=== PATIENT | female | born 1935 | race Caucasian/White ===

== ENCOUNTER 2017-03-15 15:01 | Emergency (ER) | payer SELFPAY | END 2017-03-15 18:53 | disposition home or self-care (01) | LOC: D.ER 15:01 | DX: S39.012A Strain of muscle, fascia and tendon of lower back, initial encounter (principal); W01.0XXA Fall on same level from slipping, tripping and stumbling without subsequent striking against object, initial encounter; Y93.89 Activity, other specified; Y92.019 Unspecified place in single-family (private) house as the place of occurrence of the external cause ==

== ENCOUNTER 2017-03-22 07:23 | Inpatient (IN) | payer MEDICARE, OTHER ==
[2017-03-22] VITALS (7 sets, daily range): BP systolic 95–195; BP diastolic 42–85; BMI 23.7
[~2017-03-22] VITALS: Ht 167.6 cm; Wt 66.7 kg
--- NOTE | ~2017-03-22 | CN ---
PATIENT NAME:CLEMENT BYRNE MEDICAL RECORD: [id number] : 37 LOCATION:[facility].CV07 ADMIT DATE: 03/22/17 ACCOUNT: [id number] CONSULTING PHYSICIAN: ERMY MCALLISTER MD REFERRING PHYSICIAN: PILLO VARGHESE MD DATE OF CONSULTATION: 03/26/2017 REQUESTING PHYSICIAN: Tatiana Sharma MD. REASON FOR CONSULTATION: Acute exacerbation of COPD and shortness of breath. HISTORY OF PRESENT ILLNESS: Ms. Byrne is an 81-year-old female, now she is confused. She was admitted on the 22 of March with peripheral vascular disease. She underwent right above-knee amputation by Dr. Fernandes. Now, she has increasing shortness of breath. She is coughing and she also is confused with mental status changes. REVIEW OF SYSTEMS: The detail is not obtainable. PAST MEDICAL HISTORY: 1. COPD. 2. Hypertension. 3. Hypercholesterolemia. 4. Gastroesophageal reflux disease. 5. Anxiety. PAST SURGICAL HISTORY: She has hysterectomy, now she is status post right above-knee amputation. ALLERGIES: SHE IS ALLERGIC TO PENICILLIN. PRESENT MEDICATIONS: ev3, Inctech was reviewed. PERSONAL AND SOCIAL HISTORY: The patient is a current everyday smoker. She is a nondrinker. FAMILY HISTORY: Noncontributory. PHYSICAL EXAMINATION: GENERAL: Now, the patient is lying comfortably. She is not in acute distress. VITAL SIGNS: The blood pressure is 150/50, pulse is 94, respirations 20, temperature is 98.7, SpO2 is 94% on 3 L nasal cannula. HEENT: Conjunctiva is pale. Sclerae nonicteric. NECK: Supple. No JVD. CHEST: Prolonged expiration with wheezing. There are crackles at the right base. HEART: Rate and rhythm is regular, normal sound, no murmur. ABDOMEN: Soft. Bowel sounds present. No hepatosplenomegaly. RECTAL: Deferred. EXTREMITIES: No cyanosis, no clubbing. There is no pedal edema. There is a right above-knee amputation. LABORATORY DATA: CBC: WBC is 15.1, hemoglobin 8.1, hematocrit 25, the platelet count is 397. Chemistry: Sodium 144, potassium is 3, BUN is 47, creatinine 1.7, glucose 119. CONSULT REPORT [id number] CLEMENT BYRNE IMAGING: Chest radiograph, there is atelectasis and infiltrate, right lower lobe. IMPRESSION: 1. Acute exacerbation of chronic obstructive pulmonary disease, midyl-me-xxkvcio hypoxic respiratory failure. 2. Pneumonia, right lower lobe, most likely hospital-acquired pneumonia. The patient is status post general anesthesia and possible aspiration. 3. Leukocytosis. 4. Anemia. 5. Acute renal failure. 6. Gastroesophageal reflux, status post right above-knee amputation. 7. Peripheral vascular disease. RECOMMENDATION: 1. Get a speech evaluation. Start her on vancomycin, cefepime and Levaquin to cover for MRSA as well as Gram-negative michael and hospital-acquired pneumonia. 2. Start methylprednisolone IV, albuterol/ipratropium nebulizer. 3. Brovana and budesonide nebulizer. 4. Mucinex. Follow up labs and chest radiograph. Dr. Sharma, thank you for involving me in the care of Ms. Byrne. The critical care time is 45 minutes. TRANSINT:[id number] Voice Confirmation ID: [id number] DOCUMENT ID: [id number] REMY MCALLISTER MD CC: TATIANA SHARMA MD [id number] DICTATION DATE: 03/26/17 1050 TATTOO IDENTIFIER: 03/26/17 1223 ADM IN [facility] [address] [place] [address]
--- NOTE | ~2017-03-22 | HEMODYNAMI ---
PATIENT:CLEMENT MCKEON MEDICAL RECORD: [id number] : 37 LOCATION:[facility] ADMISSION DATE: 03/22/17 Generatedon:03/22/201712:51 Patient name: CLEMENT MCKEON Patient #: [id number] SSN: : 1935 Date of study: 03/22/2017 Page: Of Hemodynamic Procedure Report Patient Data Patient Demographics Procedure consent was obtained First Name: CLEMENT Gender: Female Last Name: LINDA : 1935 [facility] Initial: J Age: 81 year(s) Patient #: [id number] Race: Unknown Additional ID: [id number] Contact details [address]: [address] [place] [address] State: [place] City: [place] Zip code: [address] Past Medical History Allergies Allergen Reaction Date Comments Reported Penicillins 03/22/2017 Admission Admission Data Admission Date: 03/22/2017 Admission Time: 7:23 Weight (lbs.): 147 Weight (kg.): 66.68 Procedure Procedure Types Cath Procedure Peripheral Cath Diagnostic Procedure Cath Peripheral Abd/Extremity Extremities Bilat Lower Extremity Procedure Description Procedure Date Procedure Date: 03/22/2017 Procedure Start Time: 11:06 Procedure Staff Name Function Pratik Bailey MD Performing Physician Harjeet Savage RT Scrub Cecilia Sharma RN Nurse Donna Pang RN Nurse Kelly Mccracken RT Test Technician Kelly Mccracken RT Monitor Procedure Data Cath Procedure Fluoroscopy Diagnostic fluoroscopy Total fluoroscopy Time: time: 21.3 min 21.3 min Diagnostic fluoroscopy Total fluoroscopy dose: 881 dose: 881 mGy mGy Contrast Material Contrast Material Type Amount (ml) Isovue 300 155 Diagnostic catheters Device Type Used For End Catheter Placement Merit ULTRA BOLUS FLUSH 5Fr 90CM catheter Procedure Medications Medication Administration Route Dosage Fentanyl I.V. 50 mcg Oxygen NC 3 l/min Fentanyl I.V. 50 mcg Heparin Flush Bag added to field 3 bags (1000units/500ml NS) Lidocaine 1% added to field 20 Versed I.V. 0.5 mg Hydralizine I.V. 10 mg Versed I.V. 0.5 mg Hydralizine I.V. 10 mg Fentanyl I.V. 50 mcg Versed I.V. 0.5 mg Fentanyl I.V. 25 mcg Versed I.V. 0.5 mg Fentanyl I.V. 25 mcg Heparin Bolus I.V. 5000 units Fentanyl I.V. 50 mcg Fentanyl I.V. 50 mcg Hemodynamics Rest Heart Rate: 81 (bpm) Snapshots Pre Cath Intra NCS Post Cath Vital Signs Time Heart Resp SPO2 NIBP (mmHg) Rhythm Pain Status Sedation Rate (ipm) (%) Level (bpm) 10:44:14 88 15 97 Out of NSR 4 (11) , 10(A) range Distressing 10:48:42 88 17 98 186/80(138) NSR 4 (11) , 10(A) Distressing 10:53:08 86 16 98 186/77(141) NSR 4 (11) , 10(A) Distressing 10:57:36 87 15 96 179/75(133) NSR 4 (11) , 10(A) Distressing 11:01:59 88 14 97 175/76(130) NSR 4 (11) , 10(A) Distressing 11:06:58 89 23 96 Measuring NSR 0 (11) , No 9(A) pain 11:07:14 90 20 98 182/77(135) NSR 0 (11) , No 9(A) pain 11:11:36 87 12 97 181/81(135) NSR 0 (11) , No 10(A) pain 11:16:35 88 22 96 Measuring NSR 0 (11) , No 9(A) pain 11:17:02 90 17 98 188/76(137) NSR 0 (11) , No 9(A) pain 11:21:32 86 14 98 186/72(117) NSR 0 (11) , No 10(A) pain 11:25:56 89 16 97 173/73(124) NSR 0 (11) , No 9(A) pain 11:30:14 88 16 98 152/61(112) NSR 0 (11) , No 9(A) pain 11:34:33 90 14 96 155/64(116) NSR 0 (11) , No 10(A) pain 11:39:42 89 13 97 145/60(103) NSR 0 (11) , No 10(A) pain 11:44:06 91 13 96 138/60(96) NSR 0 (11) , No 9(A) pain 11:48:22 95 19 97 135/60(90) NSR 0 (11) , No 9(A) pain 11:52:42 95 10 93 148/65(103) NSR 0 (11) , No 9(A) pain 11:57:00 94 19 93 149/64(98) NSR 0 (11) , No 9(A) pain 12:01:25 97 15 93 162/64(105) NSR 0 (11) , No 9(A) pain 12:05:39 97 22 93 143/62(102) NSR 0 (11) , No 10(A) pain 12:10:01 98 13 91 149/62(103) NSR 0 (11) , No 9(A) pain 12:15:18 96 17 93 142/63(99) NSR 0 (11) , No 9(A) pain 12:19:36 98 20 94 151/60(91) NSR 0 (11) , No 9(A) pain 12:23:56 100 13 93 148/58(95) NSR 0 (11) , No 9(A) pain 12:29:12 99 14 90 151/59(102) NSR 0 (11) , No 9(A) pain 12:33:30 98 18 94 144/66(109) NSR 0 (11) , No 9(A) pain 12:39:53 103 21 99 Time NSR 0 (11) , No 9(A) Exceeded pain 12:44:42 100 19 94 120/58(95) NSR 0 (11) , No 9(A) pain 12:48:47 100 22 93 127/74(93) NSR 0 (11) , No 9(A) pain Medications Time Medication Route Dose Verified Delivered Reason Notes Effectiveness by by 10:54:02 Fentanyl I.V. 50 Cecilia Cecilia for right leg mikey Sharma RN pain 10:54:16 Oxygen NC 3 Cecilia Cecilia Per protocol l/min King BELIA Sharma RN 11:01:15 Fentanyl I.V. 50 Cecilia Cecilia for right leg mcg Zachary RN Zachary RN pain 11:01:38 Heparin Flush added 3 Cecilia Cecilia used for Bag to bags King BELIA Sharma business data analyst (1000units/500ml field NS) 11:01:52 Lidocaine 1% added 20ml Cecilia Cecilia for local to vial King BELIA Sharma RN anesthetic field 11:14:51 Versed I.V. 0.5 Cecilia Cecilia for sedation mg King BELIA Sharma RN 11:17:27 Hydralizine I.V. 10 mg Cecilia Cecilia for King BELIA Sharma RN hypertension 11:23:53 Versed I.V. 0.5 Cecilia Cecilia for sedation mg King BELIA Sharma RN 11:26:38 Hydralizine I.V. 10 mg Cecilia Cecilia for King BELIA Sharma RN hypertension 11:39:11 Fentanyl I.V. 50 Cecilia Cecilia for sedation mcg King BELIA Sharma RN 11:41:54 Versed I.V. 0.5 Cecilia Cecilia for sedation mg King BELIA Sharma RN 11:42:01 Fentanyl I.V. 25 Cecilia Ceiclia for sedation mcg King BELIA Sharma RN 11:58:38 Versed I.V. 0.5 Cecilia Cecilia for sedation mg King BELIA Sharma RN 11:58:47 Fentanyl I.V. 25 Cecilia Cecilia for sedation mcg King BELIA Sharma RN 12:00:44 Heparin Bolus I.V. 5000 Cecilia Cecilia for units King BELIA Sharma RN anticoagulation 12:06:52 Fentanyl I.V. 50 Cecilia Cecilia for sedation mcg King BELIA Sharma RN 12:22:14 Fentanyl I.V. 50 Cecilia Cecilia for sedation mcg King BELIA Sharma button breaker Log Time Note 10:36:44 Patient Weight : 147 kg 10:37:43 Time tracking: Regular hours 10:38:00 Plan of Care:Hemodynamics will remain stable., Cardiac rhythm will remain stable., Comfort level will be maintained., Respiratory function will remain adequate., Patient/ family verbilizes understanding of procedure., Procedure tolerated without complication., Recovers from procedure without complications.. 10:38:08 Patient received from Outpatients to IR Alert and oriented. Tansferred to table in Supine position. 10:38:25 Signed procedure consent form obtained from patient. 10:38:35 H&P Date Dictated: 03/22/2017 Within 30 days and on chart.. 10:38:38 Pre-procedure instructions explained to patient. 10:38:39 Pre-op teaching completed and patient verbalized understanding. 10:38:44 Family unavailable. 10:38:51 Patient NPO since Midnight. 10:39:07 Patient allergic to Penicillins 10:39:26 Is the patient allergic to Iodine/contrast media? No. 10:39:29 Is patient on blood thinner?No 10:40:02 Patient diabetic? No. 10:40:08 Snore? Yes 10:40:11 Sleep apnea? No 10:40:13 Deviated septum? No 10:40:15 Opens mouth fully? Yes 10:40:17 Sticks out tongue? Yes 10:40:25 Airway obstruction? No ? 10:40:29 Dentures? No ? 10:40:54 IV patent on arrival in left wrist with 0.9% NaCl at [facility]. 10:41:02 Pre procedure: left dorsailis pedis pulse Doppler 10:41:08 Pre procedure: right dorsailis pedis pulse 0-Absent 10:41:13 Pre procedure: right posterior tibial pulse 0-Absent 10:41:18 Pre procedure: left posterior tibial pulse doppler 10:41:33 - 10:43:00 ECG and BP/O2 sat monitors applied to patient. 10:43:14 Vital chart was started 10:43:22 Baseline sample Acquired. 10:43:23 Full Disclosure recording started 10:43:28 Baseline sample Acquired. 10:43:38 - 10:43:53 Left groin area was prepped with chlora-prep and draped in sterile fashion 10:43:55 Alarms reviewed by Jennie Pritchard 10:43:56 Sharps counted by scrub and verified by RJose De Jesus. 10:43:57 - 10:52:17 Use device set IR Diagnostic 10:52:19 Sterile Angiographic Pack opened to sterile field. 10:52:20 Bag Decanter opened to sterile field. 10:52:21 Acist Manifold opened to sterile field. 10:52:22 Acist Hand Control opened to sterile field. 10:52:23 Acist Syringe opened to sterile field. 10:52:36 TUBING, CONTRAST INJCTN HI PRES opened to sterile field. 10:52:56 Micropuncture VSI 4FR kit opened to sterile field. 10:52:57 Cook DOC .035 guide wire opened to sterile field. 10:52:58 Terumo 5Fr [place] Sheath opened to sterile field. 10:53:14 - 10:54:02 Fentanyl 50 mcg I.V. was administered by Cecilia Sharma RN; for right leg pain; 10:54:16 Oxygen 3 l/min NC was administered by Cecilia Sharma RN; Per protocol; 11:01:15 Fentanyl 50 mcg I.V. was administered by Cecilia Sharma RN; for right leg pain; 11:01:38 Heparin Flush Bag (1000units/500ml NS) 3 bags added to field was administered by Cecilia Sharma RN; used for procedure; 11:01:52 Lidocaine 1% 20ml vial added to field was administered by Cecilia Sharma RN; for local anesthetic; 11:04:42 Physician arrived 11:06:03 --------ALL STOP TIME OUT------ 11:06:04 Final Timeout: patient, procedure, and site verified with staff and physician. All members of the team are in agreement. 11:06:10 Left Arm site verified by team. 11:06:23 Physical assessment completed. ASA score P 3 - A patient with severe systemic disease as per Pratik Bailey MD. 11:06:30 Sedation plan: IV Moderate Sedation Versed, Fentanyl 11:06:38 Procedure started. 11:06:49 Local anesthetic to left brachial artery with Lidocaine 1% by Pratik Bailey MD.INITIAL ACCESS ONLY 11:06:52 Arterial access obtained using ultrasound guidance. 11:08:19 A Merit ULTRA BOLUS FLUSH 5Fr 90CM catheter was advanced over the wire and used for . 11:12:12 Terumo 5FR ANGLED 65CM glide catheter opened to sterile field. 11:14:02 Terumo ANGLE 260cm glide wire opened to sterile field. 11:14:15 Terumo TORQUE DEVICE PLASTIC .038 opened to sterile field. 11:14:51 Versed 0.5 mg I.V. was administered by Cecilia Sharma RN; for sedation; 11:17:27 Hydralizine 10 mg I.V. was administered by Cecilia Sharma RN; for hypertension; 11:23:53 Versed 0.5 mg I.V. was administered by Cecilia Sharma RN; for sedation; 11:26:38 Hydralizine 10 mg I.V. was administered by Cecilia Sharma RN; for hypertension; 11:29:23 Trailblazer 0.035 catheter opened to sterile field. 11:29:[address] .035 glide wire opened to sterile field. 11:38:33 Cook BARRIOS 260 guide wire opened to sterile field. 11:39:11 Fentanyl 50 mcg I.V. was administered by Cecilia Sharma RN; for sedation; 11:39:14 Cook RAABE 6FR. 90cm guide sheath opened to sterile field. 11:41:54 Versed 0.5 mg I.V. was administered by Cecilia Sharma RN; for sedation; 11:42:01 Fentanyl 25 mcg I.V. was administered by Cecilia Sharma RN; for sedation; 11:58:38 Versed 0.5 mg I.V. was administered by Cecilia Sharma RN; for sedation; 11:58:47 Fentanyl 25 mcg I.V. was administered by Cecilia Sharma RN; for sedation; 12:00:44 Heparin Bolus 5000 units I.V. was administered by Cecilia Sharma RN; for anticoagulation; 12:04:09 Cook BARRIOS 260 guide wire opened to sterile field. 12:04:56 BasixTOUCH Inflation Syringe opened to sterile field. 12:05:57 Inflation number: 1 A Cordis Powerflex Pro 4.0 x 40 x 135cm balloon was prepped and advanced across the Undefined1, then inflated to 18 TERRY for 0:16 (min:sec). 12:06:52 Fentanyl 50 mcg I.V. was administered by Cecilia Sharma RN; for sedation; 12:11:41 Cordis SMART 6 X 80 X 120 stent was deployed across Undefined1 . 12:22:14 Fentanyl 50 mcg I.V. was administered by Cecilia Sharma RN; for sedation; 12:23:54 Inflation number: 2 A Cordis Powerflex Pro 6.0 x 100 x 135cm balloon wa s prepped and advanced across the Undefined1, then inflated to 15 TERRY for 0:08 (min:sec). 12:24:46 Cordis SMART 8 X 40 X 80 stent was deployed across Undefined2 . 12:43:34 Procedure ended.(Physican Out) 12:43:51 Fluoroscopy time 21.30 minutes. 12:43:58 Flurop Dose total: 881 12:43:58 Fluoroscopy dose: 881 mGy 12:44:30 Contrast amount:Isovue 300 155ml. 12:44:33 Sharps counted by scrub and verified by R.N. 12:48:39 Procedure and supply charges have been captured, reviewed, submitted an d are correct. 12:51:34 Vital chart was stopped Intervention Summary Intervention Notes Time ActionType Lesion and Equipment Action# Pressure Duration Attributes Used 12:05:57 Inflate Undefined1 Cordis 1 18 00:16 balloon Powerflex Pro 4.0 x 40 x 135cm balloon 12:11:41 Deploy self Undefined1 Cordis 1 expanding SMART 6 X stent 80 X 120 stent 12:23:54 Inflate Undefined1 Cordis 2 15 00:08 balloon Powerflex Pro 6.0 x 100 x 135cm balloon 12:24:46 Deploy self Undefined2 Cordis 1 expanding SMART 8 X stent 40 X 80 stent Device Usage Item Name Manufacture Quantity Catalog Number Hospital Part Current Min imal Lot# / Charge Number Stock Stock Serial# Code Sterile Cardinal 1 [id number] [id number] 5 Angiographic Health Pack Bag Decanter Microtek 1 005457 65779 921340 5 Medical Inc. Acist Acist 1 99576 023823 047990 394677 5 Manifold Medical Systems Inc Acist Hand Acist 1 18209 398822 223782 252183 5 Control Medical Systems Inc Acist Syringe Acist 1 11840 588609 044072 255108 20 Medical Systems Inc TUBING, Merit 1 [id number] 041731 620564 792343 5 CONTRAST Medical INJCTN HI PRES Micropuncture VSI VASCULAR 1 7266V 743102 198489 5 VSI 4FR kit SOLUTIONS Cook DOC .035 Cook Medical 1 D70461 190858 825989 5 8451965 guide wire Terumo 5Fr Terumo 1 [id number] 426728 929615 616241 40 [place] Sheath Merit ULTRA Merit 1 [id number] 715231 564305 5 BOLUS FLUSH Medical 5Fr 90CM catheter Terumo 5FR Terumo 1 CG507 194536 389651 5 ANGLED 65CM glide catheter Terumo ANGLE Terumo 1 [id number] 680504 415635 668394 5 260cm glide wire Terumo TORQUE [place] 1 TD01 503940 349743 487792 5 DEVICE Scientific PLASTIC .038 Trailblazer Medtronic 1 [id number] 079179 21465 904339 5 0.035 catheter Cook [facility] 1 D63039 219962 223144 [id number] 260 .035 glide wire Cook [facility] 2 M75020 592001 507204 5 5092043 260 guide 8544472 wire Cook [facility] 1 U66028 521822 791392 5 6FR. 90cm guide sheath BasixTOUCH Merit 1 [id number] 146612 565813 025354 5 Inflation Medical Syringe Cordis Cardinal 1 [id number] 386038 992896 615232 5 Powerflex Pro Health 4.0 x 40 x 135cm balloon Cordis SMART Cardinal 1 [id number] 337870 800409 859404 0 [id number] 6 X 80 X 120 Health stent Cordis Cardinal 1 [id number] 583372 065110 405489 5 Powerflex Pro Health 6.0 x 100 x 135cm balloon Cordis SMART Cardinal 1 [id number] 684789 402410 472798 5 [id number] 8 X 40 X 80 Health stent Signature Audit [place] Stage Time Signature Unsigned Intra-Procedure 03/22/2017 Kelly Mccracken 12:51:31 PM RT(R) Signatures Monitor : Kelly Mccrackne RT Signature : Date : Time : [id number] [place] [address]
[2017-03-22] MEDS ORDERED: GABAPENTIN100 MG PO (08:07)
[2017-03-22] MEDS ORDERED: PRAVACHOL20 MG PO (08:07)
[2017-03-22] MEDS ORDERED: NORVASC10 MG PO (08:07)
[2017-03-22] MEDS ORDERED: BAYER CHEWABLE81 MG PO (08:08)
[2017-03-22] MEDS ORDERED: HCTZ25 MG PO (08:08)
[2017-03-22] MEDS ORDERED: FERROUS FUMARA324 MG PO (08:09)
[2017-03-22] MEDS ORDERED: ATACAND32 MG PO (08:09)
[2017-03-22] MEDS ORDERED: DETROL LA4 MG PO (08:09)
[2017-03-22] MEDS ORDERED: ALENDRONATE SOD70 MG PO (08:10)
[2017-03-22] MEDS ORDERED: PEPCID AC20 MG PO (08:10)
[2017-03-22] MEDS ORDERED: HYDROCODON-ACE1 EAC7 PO (08:11)
[2017-03-22] MEDS ORDERED: NYSTATIN OINTME15 GM TOPICAL (08:12)
[2017-03-22] MEDS ORDERED: TRAZODONE HCL50 MG PO (08:12)
[2017-03-22] MEDS ORDERED: MULTIPLE VITAMI1 TA1 PO (08:13)
[2017-03-22 09:06] LABS: APTT 32.4 SECONDS (22.8-39.4); INR 1.02 (0.85-1.17); PROTIME 13.2 SECONDS (11.6-15.0)
[2017-03-22 09:07] LABS: BASOPHILS 0.4 % (0-2); EOSINOPHILS 2.6 % (0-7); HEMATOCRIT 29.1 % (36.0-48.0); HEMOGLOBIN 9.5 g/dL (12-16); IMMATURE GRANULOCYTES 0.3 % (0-5); LYMPHOCYTES 10.4 % (15-50); MCH 27.8 pg (26.0-34.0); MCHC 32.6 g/dL (31.0-37.0); MCV 85.1 fL (80.0-100.0); MEAN PLATELET VOLUME 9.1 fL (7.4-10.4); MONOCYTES 7.2 % (2-11); NEUTROPHILS 79.1 % (40-80); PLATELET COUNT 440 10x3/uL (130-400); RBC 3.42 10x6/uL (4.00-5.40); RDW 13.7 % (11.5-14.5); WBC 10.7 10x3/uL (4.8-10.8)
[2017-03-22 09:11] LABS: ANION GAP 11.9 mmol/L (8-16); CALCIUM 8.6 mg/dL (8.5-10.1); CARBON DIOXIDE 27.6 mmol/L (21.0-32.0); CREATININE - SERUM 1.5 mg/dL (0.6-1.3); POTASSIUM - SERUM 3.5 mmol/L (3.5-5.1)
--- NOTE | 2017-03-22 13:21 | NUR ---
1315 RETURNED FROM SPECIALS DEPARTMENT; RIGHT LEG MOTTLED; C RN STATED RADIOLOGIST AWARE. COOL TO TOUCH
--- NOTE | 2017-03-22 13:25 | NUR ---
1315 V/S SHEET AT B/SIDE
--- NOTE | 2017-03-22 13:38 | NUR ---
9257 DR VARGHESE HERE; TALKED WITH CAREGIVER; WILL ADMIT
--- NOTE | 2017-03-22 15:49 | NUR ---
RECEIVED TO ROOM 2216 FROM RECOVERY ROOM VIA BED. ORIENTED TO ROOM AND CALL LIGHT SYSTEM. CALL LIGHT IN REACH. WILL CONTINUE WITH PLAN OF CARE.
--- NOTE | 2017-03-22 16:05 | NUR ---
DR. GERMAIN HERE TO SEE PATIENT.
--- NOTE | 2017-03-22 16:08 | NUR ---
1520- REPORT CALLED TO MICHAEL,RN 1545- PT TO 2216 VIA STRETCHER. TRANSFERRED WITH TRANSFER BOARD WITH X2 NURSES. 2L O2 NC. MICHAEL AWARE OF PT'S ARRIVAL. BED IN LOW/LOCKED POSITION WITH SIDERAILS UP X2. IV TO KVO. ICE PACK TO LEFT UPPER ARM, DRESSING CONTINUES TO BE C/D/I.
--- NOTE | 2017-03-22 16:15 | NUR ---
DR. GERMAIN HERE TO SEE PATIENT.
--- NOTE | 2017-03-22 16:25 | NUR ---
JHOAN EID, HERE TO SEE PATIENT.
--- NOTE | 2017-03-22 16:25 | NUR ---
RADIOLOGY NURSE HERE TO SEE PATIENT.
--- NOTE | 2017-03-22 17:00 | NUR ---
ICU NURSES HERE TO SEE PATIENT.
[2017-03-22 17:26] LABS: HEMATOCRIT 26.5 % (36.0-48.0); HEMOGLOBIN 8.7 g/dL (12-16)
--- NOTE | 2017-03-22 18:50 | NUR ---
NAEEMRN, DANIELA, AND DR. VARGHESE FROM RADIOLOGY HERE WITH PATIENT.
[2017-03-22 23:21] LABS: HEMOGLOBIN 8.6 g/dL (12-16)
[2017-03-23] VITALS (10 sets, daily range): BP systolic 145–176; BP diastolic 54–80; Ht 167.6 cm; Wt 66.7 kg
[2017-03-23 08:06] LABS: HEMOGLOBIN 7.7 g/dL (12-16); MCH 28.1 pg (26.0-34.0); MCHC 33.5 g/dL (31.0-37.0); MCV 83.9 fL (80.0-100.0); PLATELET COUNT 449 10x3/uL (130-400); RBC 2.74 10x6/uL (4.00-5.40); RDW 14.1 % (11.5-14.5); WBC 30.7 10x3/uL (4.8-10.8)
[2017-03-23 08:24] LABS: LYMPHOCYTES 6 % (15-50); NEUTROPHILS 86 % (40-80); PLATELET ESTIMATE INCREASED
[2017-03-23 08:26] LABS: ANION GAP 14.4 mmol/L (8-16); BILIRUBIN - TOTAL 0.3 mg/dL (0.2-1.3); CALCIUM 8.2 mg/dL (8.5-10.1); CARBON DIOXIDE 24.8 mmol/L (21.0-32.0); CREATININE - SERUM 1.7 mg/dL (0.6-1.3); PROTEIN - SERUM 5.9 g/dL (6.4-8.2)
[2017-03-23 08:30] LABS: POTASSIUM - SERUM 4.2 mmol/L (3.5-5.1)
[2017-03-23 10:58] LABS: APTT 31.1 SECONDS (22.8-39.4); INR 1.08 (0.85-1.17); PROTIME 13.9 SECONDS (11.6-15.0)
--- NOTE | 2017-03-23 13:15 | NUR ---
IV SITED TO RIGHT FOREARM AFTER 2 ATTEMPTS WITH 20G. TOLERATED WITHOUT COMPLAINTS.
--- NOTE | 2017-03-23 13:24 | NUR ---
PATIENT HAS BEGAN 1ST UNIT PRC'S, VSS.
--- NOTE | 2017-03-23 13:35 | NUR ---
NO S/S OR REACTIONS, VSS, PATIENT TALKING A LITTLE BIT WITH GRANDAUGHTER.
--- NOTE | 2017-03-23 13:50 | NUR ---
PT VSS, NO S/S.
--- NOTE | 2017-03-23 14:05 | NUR ---
PATIENT'S VSS, NO S/S.
--- NOTE | 2017-03-23 14:20 | NUR ---
PATIENTS MICHELE DELA CRUZ APRN SPOKE WITH POA TO GET CONSENT FOR AMPUTATION.
[2017-03-23 14:50] LABS: HEMATOCRIT 25.9 % (36.0-48.0); HEMOGLOBIN 8.6 g/dL (12-16)
--- NOTE | 2017-03-23 14:50 | NUR ---
PATIENT'S VSS, CONSENTS SIGNED BY POA.
--- NOTE | 2017-03-23 15:15 | NUR ---
OR CALLED TO PREOP. PATIENT'S VSS.
--- NOTE | 2017-03-23 15:30 | NUR ---
BLOOD COMPLETE, DISCONNECTED AND FLUSHED IV THROUGH. PREOPS GIVEN. VERONA FROM OR HERE TO P/U PATIENT, PREOP IV PUSHES AND PO MED GIVEN SEE JAN.
--- NOTE | 2017-03-23 18:43 | NUR ---
DE LUNA CATH PLACED PER ORDER.
--- NOTE | 2017-03-23 19:30 | NUR ---
REPORT RECVD. CARE ASSUMED. INITIAL ASSMNT COMPLETED. SEE FLOWSHEET FOR ALL FINDINGS. LETHARGIC. AROUSES TO VOICE. CONFUSED. ANSWERS QUESTIONS. SPEECH MILDLY GARBLED. PERRLA. FOLLOWS COMMANDS. WEAKNESS NOTED IN ALL EXTREMITIES. RIGHT AKA DRESSING CDI. ELEVATED. DENIES DISCOMFORT. TURNED AND REPOSITIONED FOR SKIN INTEGRITY AND COMFORT. RESP UNLABORED. SHALLOW WITH DIMINISHED LUNG SOUNDS. SPO2 94$ ON O2 AT 4 LPM NC. SR ON THE MONITOR. PULSES WEAK. LEFT LE PER DOPPLER. ABD SOFT, BSA X4. F/C PATENT WITH IZABELA UOP. AFEBRILE. HOB UP. C/L IN REACH. CONT CURRENT POC.
--- NOTE | 2017-03-23 21:15 | NUR ---
SPOKE WITH PT SAYRA THOMAS. UPDATE GIVEN. TURNED AND REPOSITIONED. REMAINS LETHARGIC. PO MEDS HELD. ORAL CARE PROVIDED. HOB UP. C/L IN REACH. CONT CURRENT POC.
--- NOTE | 2017-03-23 23:30 | NUR ---
REASSESSMENT COMPLETED. SEE FLOWSHEET FOR ALL FINDINGS. LETHARGIC. AROUSES TO VOICE. CONFUSED. ANSWERS QUESTIONS. SPEECH MILDLY GARBLED. PERRLA. FOLLOWS COMMANDS. WEAKNESS NOTED IN ALL EXTREMITIES. RIGHT AKA DRESSING CDI. ELEVATED. DENIES DISCOMFORT. TURNED AND REPOSITIONED FOR SKIN INTEGRITY AND COMFORT. RESP UNLABORED. SHALLOW WITH DIMINISHED LUNG SOUNDS. SPO2 94$ ON O2 AT 4 LPM NC. SR ON THE MONITOR. PULSES WEAK. LEFT LE PER DOPPLER. ABD SOFT, BSA X4. F/C PATENT WITH IZABELA UOP. AFEBRILE. HOB UP. C/L IN REACH. CONT CURRENT POC.
[2017-03-23 23:55] LABS: HEMATOCRIT 26.8 % (36.0-48.0); HEMOGLOBIN 8.8 g/dL (12-16)
[2017-03-24] VITALS (24 sets, daily range): BP systolic 117–168; BP diastolic 49–70
--- NOTE | 2017-03-24 01:20 | NUR ---
TURNED AND REPOSITIONED. ORAL CARE PROVIDED. MORE AWAKE AND ALERT. RESTLESS. VSS. HYPERTENSIVE. SR ON THE MONITOR. NO DISTRESS. HOB UP. C/L IN REACH. CONT CURRENT POC.
--- NOTE | 2017-03-24 03:30 | NUR ---
REASSESSMENT COMPLETED. SEE FLOWSHEET FOR ALL FINDINGS. AWAKE. CALLING OUT. CONFUSED. ANSWERS QUESTIONS. SPEECH MILDLY GARBLED. PERRLA. FOLLOWS COMMANDS. WEAKNESS NOTED IN ALL EXTREMITIES. RIGHT AKA DRESSING CDI. ELEVATED. DENIES DISCOMFORT. TURNED AND REPOSITIONED FOR SKIN INTEGRITY AND COMFORT. RESP UNLABORED. SHALLOW WITH DIMINISHED LUNG SOUNDS. SPO2 94% ON O2 AT 4 LPM NC. SR ON THE MONITOR. PULSES WEAK. LEFT LE PER DOPPLER. ABD SOFT, BSA X4. F/C PATENT WITH IZABELA UOP. AFEBRILE. HOB UP. C/L IN REACH. CONT CURRENT POC.
--- NOTE | 2017-03-24 04:00 | NUR ---
PT RESTLESS. PULLING LINES AND O2. UNABLE TO REORIENT AND REDIRECT. SODR WRIST RESTRAINTS PER PROTOCOL.
--- NOTE | 2017-03-24 05:27 | NUR ---
RESTLESS AND CALLING OUT WITH REPETITIVE STATEMENTS..."HELP ME LORD" VSS. DENIES PAIN. PRN NORCO EFFECTIVE WITH PAIN CONTROL. HOB UP. C/L IN REACH. CONT CURRENT POC.
[2017-03-24 05:51] LABS: BASOPHILS 0.1 % (0-2); EOSINOPHILS 0 % (0-7); HEMATOCRIT 27.3 % (36.0-48.0); HEMOGLOBIN 8.8 g/dL (12-16); IMMATURE GRANULOCYTES 0.3 % (0-5); LYMPHOCYTES 4.5 % (15-50); MCH 27.8 pg (26.0-34.0); MCHC 32.2 g/dL (31.0-37.0); MONOCYTES 4.7 % (2-11); NEUTROPHILS 90.4 % (40-80); PLATELET COUNT 368 10x3/uL (130-400); RBC 3.17 10x6/uL (4.00-5.40); RDW 14.4 % (11.5-14.5)
[2017-03-24 05:59] LABS: MCV 86.1 fL (80.0-100.0); WBC 18.6 10x3/uL (4.8-10.8)
[2017-03-24 06:15] LABS: ALBUMIN 1.8 g/dL (3.4-5.0); ANION GAP 14.1 mmol/L (8-16); BILIRUBIN - TOTAL 0.25 mg/dL (0.2-1.3); CALCIUM 7.7 mg/dL (8.5-10.1); CARBON DIOXIDE 24.7 mmol/L (21.0-32.0); CREATININE - SERUM 1.7 mg/dL (0.6-1.3); POTASSIUM - SERUM 3.8 mmol/L (3.5-5.1)
[2017-03-24 11:34] LABS: HEMATOCRIT 27.5 % (36.0-48.0)
[2017-03-24 16:52] LABS: HEMATOCRIT 26.6 % (36.0-48.0); HEMOGLOBIN 8.7 g/dL (12-16)
--- NOTE | 2017-03-24 16:53 | NUR ---
BED BATH AND LINEN CHANGE TO INCLUDE HAIR SHAMPOO, SCRUBBING DIRT AND FECES FROM UNDER FINGERNAILS AND ORAL CARE. BOUDREUXS APPLIED TO BACK AND BUTTOCKS. LOTION APPLIED TO ENTIRE BODY. WHITE PATCHES NOTED IN THE BACK OF THE MOUTH AND THROAT. MOUTH MOISTURIZER APPLIED.
--- NOTE | 2017-03-24 17:25 | NUR ---
POA AT BEDSIDE. UPDATE GIVEN. POA CLIPPING PT'S FINGERNAILS DUE TO DIRT AND FECES BEING UNDER NAILS. ZAINA INFORMS THAT "SOME FAMILY WILL BE VISITING" ALL QUESTIONS ANSWERED. NO CONCERNS AT THIS TIME. WILLIAM EXPRESSES GREAT PLEASURE IN PT'S CARE. STATES SHE IS "GLAD SHE'S STAYING IN ICU TONIGHT BECAUSE ALL OF YOU GUYS ARE SO GOOD TO HER".
--- NOTE | 2017-03-24 18:15 | NUR ---
FAMILY AT BEDSIDE QUESTIONING WHY PT HASN'T EATEN. INFORMED PT ATE ALL SHE WANTED WHICH CONSISTED OF 4 BITES OF CHICKEN AND DUMPLINGS AND HALF OF A STRAWBERRY ENSURE. FAMILY ATTEMPTING TO WAKE PT. INFORMED THAT PT HAS RECENTLY HAD BED BATH AND LINEN CHANGE AND REQUESTED TO "GO TO BED"
--- NOTE | 2017-03-24 19:30 | NUR ---
REPORT RECVD. CARE ASSUMED. INITIAL ASSMNT COMPLETED. SEE FLOWSHEET FOR ALL FINDINGS. AROUSES TO VOICE. CONFUSED. ANSWERS QUESTIONS. SPEECH MILDLY GARBLED. PERRLA. FOLLOWS COMMANDS. WEAKNESS NOTED IN ALL EXTREMITIES. RIGHT AKA DRESSING CDI. ELEVATED. DENIES DISCOMFORT. TURNED AND REPOSITIONED FOR SKIN INTEGRITY AND COMFORT. RESP UNLABORED. SHALLOW WITH DIMINISHED LUNG SOUNDS. SPO2 94% ON O2 AT 4 LPM NC. SR ON THE MONITOR. PULSES WEAK. LEFT LE PER DOPPLER. ABD SOFT, BSA X4. F/C PATENT WITH IZABELA UOP. AFEBRILE. HOB UP. C/L IN REACH. CONT CURRENT POC.
--- NOTE | 2017-03-24 21:30 | NUR ---
HS MEDS GIVEN IN APPLESAUCE. SUPPLEMENT OFFERED AND TAKEN SPARINGLY. PRN PAIN MED GIVEN TO PROMOTE COMFORT. TURNED AND REPOSITIONED. NO VISITORS. HOB UP. C/L IN REACH. BED ALARM ON. CONT CURRENT POC.
--- NOTE | 2017-03-24 23:30 | NUR ---
REASSESSMENT CPMPL;ETED. SEE FLOWSHEET FOR ALL FINDINGS. AROUSES TO VOICE. CONFUSED. ANSWERS QUESTIONS. SPEECH MILDLY GARBLED. PERRLA. FOLLOWS COMMANDS. WEAKNESS NOTED IN ALL EXTREMITIES. RIGHT AKA DRESSING CDI. ELEVATED. DENIES DISCOMFORT. TURNED AND REPOSITIONED FOR SKIN INTEGRITY AND COMFORT. RESP UNLABORED. SHALLOW WITH DIMINISHED LUNG SOUNDS. SPO2 94% ON O2 AT 4 LPM NC. SR ON THE MONITOR. PULSES WEAK. LEFT LE PER DOPPLER. ABD SOFT, BSA X4. F/C PATENT WITH IZABELA UOP. AFEBRILE. TURNED AND REPOSITIONED. SUPPLEMENT OFFRED AND TAKEN. HOB UP. C/L IN REACH. CONT CURRENT POC.
[2017-03-25] VITALS (23 sets, daily range): BP systolic 128–180; BP diastolic 49–71
--- NOTE | 2017-03-25 01:20 | NUR ---
TURNED AND REPOSITIONED. VSS. RESTING WITH NO DISTRESS. VERBALLY DISRUPTIVE AT TIMES. SIPS OF SUPPLEMENT TAKEN. HOB UP. C/L IN REACH. CONT CURRENT POC.
--- NOTE | 2017-03-25 03:30 | NUR ---
REASSESSMENT CPMPL;ETED. SEE FLOWSHEET FOR ALL FINDINGS. AROUSES TO VOICE. CONFUSED. ANSWERS QUESTIONS. SPEECH MILDLY GARBLED. PERRLA. FOLLOWS COMMANDS. WEAKNESS NOTED IN ALL EXTREMITIES RIGHT AKA DRESSING CDI. ELEVATED. DENIES DISCOMFORT. TURNED AND REPOSITIONE FOR SKIN INTEGRITY AND COMFORT. RESP UNLABORED. SHALLOW WITH DIMINISHED BARBER SOUNDS. SPO2 94% ON O2 AT 4 LPM NC. SR ON THE MONITOR. PULSES WEAK. LEFT LE PER DOPPLER. ABD SOFT, BSA X4. F/C PATENT WITH IZABELA UOP. AFEBRILE. TURNED AND REPOSITIONED. SUPPLEMENT OFFRED AND TAKEN. HOB UP. C/L IN REACH. CONT CURRENT POC.
--- NOTE | 2017-03-25 05:13 | NUR ---
TURNED AND REPOSITIONED. ORAL CARE AND DE LUNA CARE PROVIDED. VSS. SR ON THE MONITOR. CPO2 93% ON O2 AT 4 LPM NC. WEAK COUGH NOTED. DENIES DISCOMFORT. SUPPLEMENT OFFERED. SIPS TAKEN. HOB UP. C/L IN REACH. CONT CURRENT POC.
[2017-03-25 05:31] LABS: BASOPHILS 0 % (0-2); EOSINOPHILS 0 % (0-7); HEMATOCRIT 26.5 % (36.0-48.0); HEMOGLOBIN 8.8 g/dL (12-16); IMMATURE GRANULOCYTES 0.6 % (0-5); LYMPHOCYTES 4.8 % (15-50); MCH 28.3 pg (26.0-34.0); MCHC 33.2 g/dL (31.0-37.0); MCV 85.2 fL (80.0-100.0); MEAN PLATELET VOLUME 9.2 fL (7.4-10.4); MONOCYTES 3.9 % (2-11); NEUTROPHILS 90.7 % (40-80); PLATELET COUNT 378 10x3/uL (130-400); RBC 3.11 10x6/uL (4.00-5.40); RDW 14.5 % (11.5-14.5)
[2017-03-25 05:59] LABS: ALBUMIN 1.6 g/dL (3.4-5.0); ANION GAP 13.8 mmol/L (8-16); BILIRUBIN - TOTAL 0.3 mg/dL (0.2-1.3); CALCIUM 7.7 mg/dL (8.5-10.1); CARBON DIOXIDE 25.3 mmol/L (21.0-32.0); CREATININE - SERUM 1.4 mg/dL (0.6-1.3); POTASSIUM - SERUM 3.1 mmol/L (3.5-5.1); PROTEIN - SERUM 6.1 g/dL (6.4-8.2)
--- NOTE | 2017-03-25 06:49 | NUR ---
k+ level to be treated per protocol
--- NOTE | 2017-03-25 12:10 | NUR ---
UPDATE GIVEN TO POA.
--- NOTE | 2017-03-25 13:35 | NUR ---
UNABLE TO CLEAR THROAT. NT SUCTION PROVIDED. NO GAG NOTED.
--- NOTE | 2017-03-25 15:05 | NUR ---
FAMILY AT BEDSIDE. NO CURRENT QUESTIONS.
--- NOTE | 2017-03-25 17:20 | NUR ---
UPDATE GIVEN TO WILLIAM COLBERT.
--- NOTE | 2017-03-25 19:20 | NUR ---
REPORT REC'D AND CARE ASSUMED, REC'D PT RESTING EYES CLOSED, O2 @ 2LITERS VIA NC, PT AWAKENS TO VERBAL STIMULI, SPEECH INTERMITTENTLY GARBLED, ORIENTED TO PERSON ONLY, RIGHT FA PIV PATENT WITH D51/2NS @ 75CC/HR, LEFT UPPER ARM WITH LARGE BRUISE THAT BEGINS AT ELBOW AND GOES UP SHOULDER, RIGHT RECENT AKA, DRSG CDI, LEFT LEG WRINKLED PULSES BY DOPPLER, CM-SR, BP STABLE, SR UP X 2, CALL LIGHT IN REACH.
--- NOTE | 2017-03-25 20:40 | NUR ---
PT AWAKENED AND ATTEMPTED SIPS OF ENSURE AND BITE OF APPLESAUCE, PT WOULD NOT DRINK FROM [place] OR TAKE APPLESAUCE OFF OF SPOON, PT REPOSITIONED UP AND IN ONTO RIGHT SIDE SUPPORTED WITH PILLOWS, ATTEMPTED TO GET PT SIP ENSURE, WHEN ASKED IF SHE WOULD LIKE A DRINK, STATES "YES" BUT DOES NOT DRINK FROM [place], PO MEDS HELD, NYSTATIN LIQUID PLACED ON SPONGE AND PT'S MOUTH SWABBED.
--- NOTE | 2017-03-25 21:00 | NUR ---
NO VISITORS IN AT THIS TIME
--- NOTE | 2017-03-25 23:00 | NUR ---
REASSESSMENT COMPLETED, PT INCONTINENT OF LOOSE BROWN STOOL, PARTIAL BATH AND LINEN CHANGE PROVIDED, PT REPOSITIONED UP AND ONTO LEFT SIDE SUPPORTED WITH PILLOWS, NONBLANCHABLE SPOT NOTED TO RIGHT BUTTOCK, ELLE'S BUTT PASTE APPLIED, PT REMAINS COMFUSED, VSS.
[2017-03-26] VITALS (24 sets, daily range): BP systolic 94–176; BP diastolic 44–71
--- NOTE | 2017-03-26 01:00 | NUR ---
PT RESTING EYES CLOSED, RESP EVEN AND UNLABORED, NO DISTRESS NOTED, VSS.
--- NOTE | 2017-03-26 03:00 | NUR ---
REASSESSMENT COMPLETED, PT REPOSITIONED IN BED, PT MORE ALERT, REMAINS CONFUSED TO TIME, PLACE, AND SITUATION, VSS, WILL CONT TO MONITOR FOR CHANGES.
--- NOTE | 2017-03-26 04:00 | NUR ---
LAB AT FOR AM LAB DRAW
[2017-03-26 05:33] LABS: BASOPHILS 0 % (0-2); EOSINOPHILS 0.1 % (0-7); HEMOGLOBIN 8.1 g/dL (12-16); IMMATURE GRANULOCYTES 0.4 % (0-5); LYMPHOCYTES 5.7 % (15-50); MCH 27.9 pg (26.0-34.0); MCHC 32.4 g/dL (31.0-37.0); MCV 86.2 fL (80.0-100.0); MEAN PLATELET VOLUME 9.4 fL (7.4-10.4); MONOCYTES 5.8 % (2-11); PLATELET COUNT 397 10x3/uL (130-400); RDW 14.6 % (11.5-14.5); WBC 15.1 10x3/uL (4.8-10.8)
[2017-03-26 06:00] LABS: ALBUMIN 1.4 g/dL (3.4-5.0); BILIRUBIN - TOTAL 0.26 mg/dL (0.2-1.3); CALCIUM 7.9 mg/dL (8.5-10.1); CREATININE - SERUM 1.7 mg/dL (0.6-1.3); PROTEIN - SERUM 5.9 g/dL (6.4-8.2)
--- NOTE | 2017-03-26 06:00 | NUR ---
NO VISITORS IN AT THIS TIME.
--- NOTE | 2017-03-26 07:00 | NUR ---
ASSESSMENT COMPLETE PER FLOWSHEET.
--- NOTE | 2017-03-26 11:50 | NUR ---
Nutrition Follow Up: Chart reviewed. Pt is lethargic this morning per MD notes. Pt is POD 3 R AKA. She is eating <5% meal avg on a regular diet. Noted RESIDENTIAL NURSE eval pending. Wt stable. I<O. +BM 03/23/17. Labs reviewed. Meds noted including D5 1/2 NS @ 75 ml/hr, MV. Pt with very poor po intake. Rec continue diet per RESIDENTIAL NURSE recs. RD will continue to monitor pt progress.
--- NOTE | 2017-03-26 17:00 | NUR ---
PRBCS COMPLETED. NO ADVERSE REACTION NOTED.
--- NOTE | 2017-03-26 19:20 | NUR ---
REPORT REC'D AND CARE ASSUMED, REC'D PT ON O2 @ 3LITERS VIA NC, AWAKE AND ALERT TO PERSON ONLY, FOLLOWS COMMANDS, REMAINS CONFUSED DESPITE REORIENTING, RIGHT A/C PIV WITH D51/2NS @ 75CC/HR, ABD DISTENDED, BS HYPOACTIVE, DE LUNA PATENT DRAINING YELLOW URINE WITH SEDIMENT, RIGHT AKA, DRSG CDI, LEFT LEG WITH DRY WRINKLED SKIN, PULSE BY DOPPLER, PT REPOSITIONED IN BED, BUTTOCK/COCCYX WITH DEEP TISSUE INJURY, PT POSITIONED TO LEFT SIDE, SR UP X 2, VISIBLE TO NURSES STATION.
--- NOTE | 2017-03-26 21:15 | NUR ---
NYSTATIN SWISH AND SWALLOW PUT ON SPONGE AND SWABBED PT'S TONGUE AND INSIDE OF MOUTH, PO MEDS HELD AWAITING SWALLOW EVAL PT WITH POSSIBLE ASPIRATION PNEUMONIA, NO VISITORS IN AT THIS TIME.
--- NOTE | 2017-03-26 21:45 | NUR ---
PT REPOSITIONED UP AND ONTO RIGHT SIDE, DEEP TISSUE INJURY NOTED TO BUTTOCK/ COCCYX, CLEAR BLISTER NOTED, SUPPORTED WITH PILLOWS, WILL MONITOR FOR CHANGES.
--- NOTE | 2017-03-26 22:15 | NUR ---
PT PULLING TELEMETRY AND BP CUFF OFF, ATTEMPTED TO REORIENT AT THIS TIME, PT REMAINS CONFUSED TO PLACE, DENIES PAIN, MONITORING EQUIPMENT REAPPLIED.
--- NOTE | 2017-03-26 23:15 | NUR ---
PT PULLING AT MONITORING EQUIPMENT, PT REPOSITIONED UP AND ONTO LEFT SIDE SUPPORTED WITH PILLOWS WHEN ASKED IF THAT FELT BETTER, STATES " YES THANK YOU", BP STABLE WILL CONT TO MONITOR CLOSELY FOR CHANGES.
[2017-03-27] VITALS (11 sets, daily range): BP systolic 138–168; BP diastolic 50–85
[2017-03-27 01:27] LABS: HEMATOCRIT 26.9 % (36.0-48.0); MCH 28.2 pg (26.0-34.0); MCHC 33.5 g/dL (31.0-37.0); MCV 84.3 fL (80.0-100.0); MEAN PLATELET VOLUME 8.9 fL (7.4-10.4); RBC 3.19 10x6/uL (4.00-5.40); WBC 20.5 10x3/uL (4.8-10.8)
--- NOTE | 2017-03-27 02:00 | NUR ---
ROUTINE MEDS GIVEN, PT RESTING IN BED EYES CLOSED, VSS.
--- NOTE | 2017-03-27 04:00 | NUR ---
RADIOLOGY @ BS FOR AM CXR
--- NOTE | 2017-03-27 05:00 | NUR ---
PT REPOSITIONED UP AND ONTO BACK, PT REMAINS CONFUSED, WILL CONT TO MONITOR
[2017-03-27 06:04] LABS: ALBUMIN 1.4 g/dL (3.4-5.0); ANION GAP 14.4 mmol/L (8-16); BILIRUBIN - TOTAL 0.47 mg/dL (0.2-1.3); CALCIUM 7.8 mg/dL (8.5-10.1); CARBON DIOXIDE 23.4 mmol/L (21.0-32.0); CREATININE - SERUM 1.8 mg/dL (0.6-1.3); PROTEIN - SERUM 5.5 g/dL (6.4-8.2); VANCOMYCIN - RANDOM 11.5 ug/mL (10.0-20.0)
[2017-03-27 06:05] LABS: POTASSIUM - SERUM 3.8 mmol/L (3.5-5.1)
[2017-03-27 06:26] LABS: HEMATOCRIT 29.4 % (36.0-48.0); HEMOGLOBIN 9.6 g/dL (12-16); MCH 27.8 pg (26.0-34.0); MCHC 32.7 g/dL (31.0-37.0); MCV 85.2 fL (80.0-100.0); MEAN PLATELET VOLUME 9.7 fL (7.4-10.4); PLATELET COUNT 381 10x3/uL (130-400); RBC 3.45 10x6/uL (4.00-5.40); RDW 14.8 % (11.5-14.5); WBC 23.1 10x3/uL (4.8-10.8)
[2017-03-27 06:46] LABS: LYMPHOCYTES 4 % (15-50); MONOCYTES 2 % (2-11); NEUTROPHILS 83 % (40-80); PLATELET ESTIMATE NORMAL
--- NOTE | 2017-03-27 10:01 | NUR ---
Rehab Prescreening Consult recieved and the patient was visited. She is pleasantly confused and I am unsure of the answers to my questions. I spoke to the PT and ST re her therapies. According to PT she is still to low level to participate in therapy. He will revisit this afternoon and see if she can progress to OOB. She meets criteria for IRF and will be accepted when she is medically stable and able to actively participate in the 3 hours a day therapy. Angie José RN Clinical Liaison, Rehab
--- NOTE | 2017-03-27 11:00 | NUR ---
WOUND CARE CONSULT: NOTED PT HAS DEEP TISSUE INJURIES TO HER COCCYX/BUTTOCKS. SHE IS BEING REPOSITIONED Q2H. RIGHT AKA INCISION IS INTACT WITH JAILYN. NO ODOR, REDNESS OR HEAT NOTED TO AREA. WOUND CARE WILL CONTINUE MONITORING.
--- NOTE | 2017-03-27 12:00 | NUR ---
ORIENTED TO ROOM, SAYRA THOMAS PHONE NUMBER PLACED ON BOARD, AIR MATTRESS ORDERED, VITALS STABLE, HOB 45 DEGREES, BED ALARM ON, BED LOWEST POSITION, CALL LIGHT IN REACH, WILL CONTINUE TO MONITOR
--- NOTE | 2017-03-27 19:00 | NUR ---
PATIENT SLEEPING SUPINE IN BED ON 1ST STEP OVERLAY. HOB 30 DEGREES. RR EVEN AND UNLABORED. O2 @ 4L VIA NC. 0 S/S OF DISTRESS. IV TO RIGHT AC PATENT WITH NO REDNESS OR SWELLING. DRESSING TO RIGHT STUMP CDI. REPLACED STATLOCK TO SECURE DE LUNA BECAUSE IT WAS OFF. B/A ON. SRX2. DOOR OPEN.
--- NOTE | 2017-03-27 22:05 | NUR ---
PATIENT AROUSES TO VOICE. IS ORIENTED X4 AT THIS TIME. NIGHTTIME MEDS GIVEN WITH NO COMPLICATIONS. UNABLE TO APPLY NYSTATIN CREAM BECAUSE THE BOX IS EMPTY, BUT CALMOSEPTINE APPLIED TO BUTTOCKS. TURNED PATIENT TO LEFT SIDE.
[2017-03-28 00:46] LABS: HEMATOCRIT 26.2 % (36.0-48.0); HEMOGLOBIN 8.8 g/dL (12-16); MCH 28.2 pg (26.0-34.0); MCHC 33.6 g/dL (31.0-37.0); MEAN PLATELET VOLUME 9.5 fL (7.4-10.4); RBC 3.12 10x6/uL (4.00-5.40); WBC 26.8 10x3/uL (4.8-10.8)
--- NOTE | 2017-03-28 02:20 | NUR ---
AT 0040, ENTERED ROOM TO REPOSITION PATIENT. PATIENT AROSE TO VOICE AND DENIED NEEDS. STRAIGHTENED BEDDING AND TURNED PATIENT TO RIGHT SIDE. PATIENT'S EYES BECAME VERY WIDE, SHE BEGAN TO SHAKE, AND THEN WENT LIMP. CALLED NELSON CHEEK AT 0044. EPI PUSHED AT 0045 AND TIME OF CALLED AT 0048. NOTIFIED WILLIAM COLBERT AT 0055. PAGED SUNNY ALTAMIRANO AT 0115. HAVE NOT RECEIVED A CALL BACK. CALLED NALDO AT 0120 AND NOTIFIED HOME AT 0135. POST MORTEM CARE COMPLETE AND BODY LEFT WITH HOME PER PHONE CONSENT AT 0220.
--- NOTE | 2017-03-29 10:44 | NUR ---
Per CMS protocol, restraint report logged into data base.
== END 2017-03-28 01:38 | DRG 239 ==
LOC: D.OPS 07:23 → D.RAD 10:00 → D.MS 15:33 → D.OPS 15:34 → D.MS 15:35 → D.CVICU 15:35 → D.MS 03-27 13:02
PROVIDERS: Emergency Medicine; ADMIT General Practice
PROC: 047H3DZ Dilation of Right External Iliac Artery with Intraluminal Device, Percutaneous Approach (ICD-10-PCS; principal; 2017-03-22 10:00)
PROC: B41G1ZZ Fluoroscopy of Left Lower Extremity Arteries using Low Osmolar Contrast (ICD-10-PCS; principal; 2017-03-22 10:00)
PROC: B41F1ZZ Fluoroscopy of Right Lower Extremity Arteries using Low Osmolar Contrast (ICD-10-PCS; principal; 2017-03-22 10:00)
PROC: 0Y670ZZ Detachment at Right Femoral Region, Open Approach (ICD-10-PCS; 2017-03-23)
DX: I70.223 Atherosclerosis of native arteries of extremities with rest pain, bilateral legs (principal); J18.9 Pneumonia, unspecified organism; J96.21 Acute and chronic respiratory failure with hypoxia; I74.5 Embolism and thrombosis of iliac artery; E87.1 Hypo-osmolality and hyponatremia; N17.9 Acute kidney failure, unspecified; R64 Cachexia; J44.1 Chronic obstructive pulmonary disease with (acute) exacerbation; I77.1 Stricture of artery; E78.00 Pure hypercholesterolemia, unspecified; K21.9 Gastro-esophageal reflux disease without esophagitis; F41.9 Anxiety disorder, unspecified; F32.9 Major depressive disorder, single episode, unspecified; I99.8 Other disorder of circulatory system; M81.0 Age-related osteoporosis without current pathological fracture; F17.200 Nicotine dependence, unspecified, uncomplicated